=== PATIENT | male | born 1965 | race Two or more races ===

== ENCOUNTER 2024-12-01 12:17 | Inpatient (IN) | payer OTHER ==
[~2024-12-01] VITALS: Ht 165.1 cm; Wt 73.5 kg
--- NOTE | 2024-12-01 12:51 | ED.PDOC ---
GI ASSESSMENT HPI Comments 59 y.o male with PMHx of HTN, presents to the ED for a chief complaint of RLQ pain associated with nausea that started yesterday. Patient reports pain is sharp, went away but came back today around 9am worse and rating a 10/10 on the pain scale, Patient does state pain radiates to his back as well. Patient came back from [place] yesterday. No other symptoms presented. Patient has a history of appendectomy. Chief Complaint: Abdominal Pain Time Seen by MD: 12:39 Reviewed Notes: Nurses Notes, Medications, Allergies Allergies: Coded Allergies: NO KNOWN ALLERGIES (Unverified , 12/01/24) Information Source: Patient Mode of Arrival: Ambulatory Timing: Days (1) Duration: Since onset Quality: Sharp Vomitus: None Stool: Normal Severity: Moderate Recent: None Recent Hx of: None Pain Location: RLQ Modifying Factors: Nothing Associated sign and symptoms: Nausea, Abdominal Pain Past Medical History PAST MEDICAL HISTORY: HTN Surgical History: Appendectomy Family History Family History: Family hx of DM Social History Smoker: Non-Smoker Alcohol: Denies ETOH Use Drugs: Denies Drug Use Lives In: Home Constitutional: denies: chills, diaphoresis, fatigue, fever, malaise, sweats, weakness, others EENTM: denies: blurred vision, double vision, ear bleeding, ear discharge, ear drainage, ear pain, ear ringing, eye pain, eye redness, hearing loss, mouth pain, mouth swelling, nasal discharge, nose bleeding, nose congestion, nose pain, photophobia, tearing, throat pain, throat swelling, voice changes, others Respiratory: denies: cough, hemoptysis, orthopnea, SOB at rest, shortness of breath, SOB with excertion, stridor, wheezing, others Cardiovascular: denies: chest pain, dizzy spells, diaphoresis, Dyspnea on exertion, edema, irregular heart beat, left arm pain, lightheadedness, palpitations, PND, syncope, others Gastrointestinal: reports: abdominal pain, nausea; denies: abdomen distended, blood streaked bowels, constipated, diarrhea, dysphagia, difficulty swallowing, hematemesis, melena, poor appetite, poor fluid intake, rectal bleeding, rectal p ain, vomiting, others Genitourinary: denies: burning, dysuria, flank pain, frequency, hematuria, incontinence, penile discharge, penile sore, pain, testicle pain, testicle swelling, urgency, others Neurological: denies: dizziness, fainting, headache, left sided numbness, left sided weakness, numbness, paresthesia, pre-existing deficit, right sided numbness, right sided weakness, seizure, speech problems, tingling, tremors, weakness, others Musculoskeletal: reports: back pain; denies: gout, joint pain, joint swelling, muscle pain, muscle stiffness, neck pain, others Integumetry: denies: bruises, change in color, change in hair/nails, dryness, laceration, lesions, lumps, rash, wounds, others Allergic/Immunocompromised: denies: Difficulty Healing, Frequent Infections, Hives, Itching, others Hematologic/Lymphatic: denies: anemia, blood clots, easy bleeding, easy bruising, swollen glands, others Endocrine: denies: excessive hunger, excessive sweating, excessive thirst, excessive urination, flushing, intolerance to cold, intolerance to heat, unexplained weight gain, unexplained weight loss, others Psychiatric: denies: anxiety, bipolar disorder, depression, hopeless, panic disorder, schizophrenia, sleepless, suicidal, others All Other Systems: Reviewed and Negative Physical Exam General Appearance: Moderate Distress HEENT: Normal ENT Inspection, Pharynx Normal, TMs Normal Neck: Full Range of Motion, Non-Tender, Normal, Normal Inspection Respiratory: Chest Non-Tender, Lungs Clear, No Accessory Muscle Use, No Respiratory Distress, Normal Breath Sounds Cardiovascular: No Edema, No JVD, No Murmur, No Gallop, Normal Peripheral Pulses, Regular Rate/Rhythm Breast Exam: Deferred Gastrointestinal: No Organomegaly, Non Tender, No Pulsatile Mass, Normal Bowel Sounds, Soft Genitalia: Deferred Pelvic: Deferred Rectal: Deferred Extremities: No calf tenderness, Normal capillary refill, No pedal edema Musculoskeletal : Location: Right Extremity Location: Back Apperance: Tenderness: Moderate Neurologic: Alert, retort setter II-XII nml as Tested, No Motor Deficits, Normal Affect, Normal Mood, No Sensory Deficits Cerebellar Function: Normal Reflexes: Normal Skin: Dry, Normal Color, Warm Lymphatic: No Adenopathy Was a procedure done? Was a procedure done?: No GI differential Dx Differential Diagnosis: Bowel Obstruction, Diverticular disease, Gastroenteritis, Inflammatory BD, Kidney Stone X-Ray, Labs, Meds, VS Vital Signs Date Time Temp Pulse Resp B/P (MAP) Pulse Ox O2 Delivery O2 Flow Rate FiO2 12/01/24 12:45 98.0 66 16 160/100 (120) 99 98.0 Lab Test 12/01/24 13:00 12/01/24 12:52 Range/Units Urine Color Light-yellow Yellow Urine Clarity Clear Clear Urine pH 6.5 5.0-9.0 Urine Specific [place] 1.016 1.001-1.035 Urine Protein Negative Negative Urine Ketones Negative Negative Urine Blood 2+ H Negative /uL Urine Nitrite Negative Negative Urine Bilirubin Negative Negative Urine Urobilinogen Normal Negative mg/dL Urine Leukocyte Esterase Negative Negative /uL Urine RBC 1 0 - 3 /hpf Urine Microscopic WBC 1 0-3 /HPF Urine Squamous Epithelial Cells None seen <5 /hpf Urine Bacteria None seen None Seen /hpf Urine Mucus Few None Seen Urine Glucose Normal Normal mg/dL White Blood Count 9.5 4.4-10.8 10^3/uL Red Blood Count 5.38 4.5-5.90 10^6/uL Hemoglobin 15.0 13.5-17.5 g/dL Hematocrit 45.1 41.0-53.0 % Mean Corpuscular Volume 83.7 80.0-100.0 fL Mean Corpuscular Hemoglobin 27.9 L 28.0-32.0 pg Mean Corpuscular Hemoglobin Concent 33.3 32.0-36.0 g/dL Red Cell Distribution Width 19.4 H 11.8-14.3 % Platelet Count 167 140-450 10^3/uL Mean Platelet Volume 9.5 6.9-10.8 fL Neutrophils (%) (Auto) 79.6 37.0-80.0 % Lymphocytes (%) (Auto) 13.3 10.0-50.0 % Monocytes (%) (Auto) 5.9 0.0-12.0 % Eosinophils (%) (Auto) 0.9 0.0-7.0 % Basophils (%) (Auto) 0.3 0.0-2.0 % Neutrophils # (Auto) 7.6 1.6-8.6 10 ^3/uL Lymphocytes # (Auto) 1.3 0.4-5.4 10 ^3/uL Monocytes # (Auto) 0.6 0-1.3 10 ^3/uL Eosinophils # (Auto) 0.1 0-0.8 10 ^3/uL Basophils # (Auto) 0 0-0.2 10 ^3/uL Nucleated Red Blood Cells 0.1 % Sodium Level 137 136-145 mmol/L Potassium Level 3.9 3.5-5.1 mmol/L Chloride Level 100 98-107 mmol/L Carbon Dioxide Level 28 20-31 mmol/L Anion Gap 9 5-15 Blood Urea Nitrogen 10 9-23 mg/dL Creatinine 1.05 0.700-1.30 mg/dL Glomerular Filtration Rate Calc 81 >90 mL/min BUN/Creatinine Ratio 9.5 L 10.0-20.0 Serum Glucose 133 H 74-106 mg/dL Calcium Level 10.1 8.7-10.4 mg/dL Exam: CT CT AB PEL WO CON-NO ORAL OR IV IMPRESSION: 3 x 1 mm obstructing calculus over the right ureterovesical junction causing minimal right-sided hydroureteronephrosis. Jnkq-ah-ptoyhoba asymmetric right-sided perinephric fat stranding which is most likely from the obstructing calculus. Underlying infectious process can not be completely excluded Additional punctate nonobstructing right renal calculi is noted. Mild rectal wall thickening which may be due to inadequate distention with proctitis not excluded. Small to moderate amount of fecal material within the colon. Additional findings as above. IV Hep-Lock has been established The CBC is within normal limits The chemistry panel is within normal limits The patient is being admitted at this time Images Reviewed?: Images reviewed and evaluated by me Time of 1ST Reevaluation: 13:00 Reevaluation 1ST: Unchanged Patient Education/Counseling: Diagnosis, Treatment, Prognosis Family Education/Counseling: No Family Present SEPSIS Sepsis Screen Physician Orders Ct Ab Pel Wo Con-No Oral Or Iv (12/01/24 12:46) Heplock Iv (12/01/24 ) Vital Signs Date Time Temp Pulse Resp B/P (MAP) Pulse Ox O2 Delivery O2 Flow Rate FiO2 12/01/24 12:45 98.0 66 16 160/100 (120) 99 98.0 Laboratory Tests Test 12/01/24 12:52 White Blood Count 9.5 10^3/uL (4.4-10.8) Departure 1 Departure Time of Disposition: 15:08 Impression: Primary Impression: Intractable abdominal pain Additional Impressions: Hydronephrosis, right Ureterolithiasis Disposition: 09 ADMITTED INPATIENT Admit to: Med Surg Condition: Fair Critical Care Note Critical Care Time?: No Stability Stability form required: Yes Unstable for transfer: ED Physician Assesment (Clinical assesment) I personally scribed for MOISES HERNANDEZ MD ([email or web address]) on 12/01/24 at 12:51. Electronically submitted by Monica Wang ([facility]). I personally scribed for MOISES HERNANDEZ MD ([email or web address]) on 12/01/24 at 13:45. Electronically submitted by Monica Wang ([facility]). I personally scribed for MOISES HERNANDEZ MD ([email or web address]) on 12/01/24 at 14:22. Electronically submitted by Monica Wang ([facility]). MOISES HERNANDEZ MD Dec 01, 2024 12:51
--- NOTE | 2024-12-01 13:24 | DVH ---
Exam: CT CT AB PEL WO CON-NO ORAL OR IV History: right flank pain Comparison Study: None TECHNIQUE: Multidetector CT of the abdomen was performed from lung bases to pubic symphysis. Imaging was performed without IV contrast. Axial, coronal and sagittal multiplanar reformats were obtained fr om the axial data set by the technologist. Radiation Dose Information: CT Dose: CTDI volume is 8.84 mGy. Dose-length product is 504.85 mGy*cm FINDINGS: The lung bases are clear. Partially visualized heart is unremarkable. Mild hepatomegaly. Otherwise, liver, spleen, gallbladder, pancreas and adrenal glands are unremarkabl e. Rwbg-ax-hrlfsoer asymmetric right-sided perinephric fat stranding. Minimal right-sided hydro ureteral nephrosis with 3 x 1 mm obstructing calculus over the right ureterovesical junction. Additional punc thompson nonobstructing right renal lower pole calculus is noted. The left kidney and ureters are unremar kable. Urinary bladder is unremarkable. Prostate is unremarkable. Mild gaseous distention of the esophagus. Stomach is unremarkable. Small bowel loops are fluid-filled and nondistended. Appendix is not definitely visualized. Without visualization of the appendix, can not exclude acute appendicitis. Small to moderate amount of fecal material within the colon. Mild re ctal wall thickening. No evidence of intraperitoneal free air or free fluid. No evidence of aortic aneurysm. Ucwr-[id number] atherosclerotic calcification of the aorta and bilat eral iliacs. No significant lymphadenopathy. Small to moderate bilateral fat containing inguinal hernias. Soft tissues are unremarkable. No destru ctive osseous lesions noted. IMPRESSION: 3 x 1 mm obstructing calculus over the right ureterovesical junction causing minimal right-sided hydr oureteronephrosis. [id number] asymmetric right-sided perinephric fat stranding which is most likely from the obstr ucting calculus. Underlying infectious process can not be completely excluded Additional punctate nonobstructing right renal calculi is noted. Mild rectal wall thickening which may be due to inadequate distention with proctitis not excluded. S mall to moderate amount of fecal material within the colon. Additional findings as above.
[2024-12-01 13:34] LABS: Hematocrit 45.1 % (41.0-53.0); Hemoglobin 15.0 g/dL (13.5-17.5); Mean Corpuscular Hemoglobin 27.9 pg (28.0-32.0); Mean Corpuscular Volume 83.7 fL (80.0-100.0); Nucleated Red Blood Cells % 0.1 %
[2024-12-01 14:25] LABS: Chloride 100 mmol/L (98-107)
[2024-12-01 14:26] LABS: Anion Gap 9 (5-15); Carbon Dioxide 28 mmol/L (20-31); Potassium 3.9 mmol/L (3.5-5.1); Sodium 137 mmol/L (136-145)
[2024-12-01 14:27] LABS: Calcium 10.1 mg/dL (8.7-10.4)
[2024-12-01 14:32] LABS: BUN/Creatinine Ratio 9.5 (10.0-20.0); Blood Urea Nitrogen 10 mg/dL (9-23)
[2024-12-01 14:40] LABS: Glucose 133 mg/dL (74-106)
[2024-12-01 15:32] LABS: Urine Protein, UAD Negative (Negative)
[2024-12-01] MEDS: SODIUM CHLORIDE 0.9% 1,000 ML IV ONE (16:25)
[2024-12-01] MEDS: KETOROLAC TROMETH 30 MG/ML 1ML VIAL IV ONE (16:31)
--- NOTE | 2024-12-01 17:11 | DVHHP2 ---
Admitting Diagnosis: RLQ pain History of Present Illness 59 y.o male with PMHx of HTN and appendectomy presents to the ED for a chief complaint of RLQ pain with nausea onset yesterday. Endorses sharp pain, went aw ay but came back today at 0900 worse and 10/10. Pain radiates to his back. Patient came back from [place] yesterday. No other symptoms presented. CT shows a 3 mm UVJ stone on the right with minimal hydro. Cr is mildly elevated 1.5. While in the emergency department the patient was evaluated by the provider, As per provider: Labs, vital signs, and imagining monitored. Patient will be admitted for further evaluation and treatment. I discussed admission with the patient/family and is in agreement to treatment plan. Allergies: Coded Allergies: NO KNOWN ALLERGIES (Unverified , 12/01/24) Current Medications Current Medications Medications (Trade) Dose Ordered Sig/Maty Route PRN Reason Start Time Stop Time Status Last Admin Enoxaparin Sodium (Lovenox) 40 mg DAILY SC 12/02/24 10:00 12/02/24 08:59 Lactulose 30 ml BID PO 12/02/24 22:00 Hydralazine HCl (Apresoline Tablet) 50 mg TID PO 12/02/24 17:30 12/02/24 17:37 Clonidine HCl (Catapres Tablet) 0.2 mg Q6HP PRN PO SBP>160 12/02/24 17:30 Review of Systems Constitutional: denies chills, denies fever, denies malaise Eyes: denies eye pain, denies vision change ENT: denies ear pain, denies headache, denies nasal congestion, denies painful swallowing, denies voice change Cardiovascular: denies chest pain, denies edema, denies orthopnea, denies palpitations, denies paroxysmal nocturnal dyspnea Respiratory: denies cough, denies shortness of breath Gastrointestinal: denies constipation, denies diarrhea, denies nausea, denies vomiting Genitourinary: denies dysuria, denies frequent urination, denies urethral discharge Musculoskeletal: denies back pain, denies joint pain, denies muscle pain Skin: denies bruising, denies itching, denies rash Neurological: denies focal weakness, denies headache, denies sensory changes Psychiatric: denies anxiety, denies depression Endocrine: denies polydipsia, denies polyuria Hematologic/Lymphatic: denies easy bleeding, denies easy bruising, denies enlarged lymph nodes Allergic/Immunologic: denies allergy, denies hives Vital Signs Vital Signs Date Time Temp Pulse Resp B/P (MAP) Pulse Ox O2 Delivery O2 Flow Rate FiO2 12/02/24 20:00 96 12/02/24 19:00 18 166/92 12/02/24 16:59 99.4 98 99.4 12/02/24 08:00 Room Air* 0 21 Physical Exam General Appearance: alert, no distress HEENT: EOMI, PERRLA, normal external inspect of ears, no icterus, no nasal drainage Neck: no carotid bruit, no jugular venous distention (JVD), no lymphadenopathy Chest: normal thorax Respiratory: clear to auscultation, normal air movement Cardiovascular: regular rate and rhythm, no diastolic murmur, no jugular venous distention (JVD), no rub, no systolic murmur Abdominal: soft, no hepatomegaly, no mass, no splenomegaly, no tenderness Genitourinary: grossly normal external Musculoskeletal: no joint tenderness, no swelling Extremities: normal pulses, no calf tenderness, no clubbing, no cyanosis, no edema Skin: no bruising, no jaundice, no rash Neurological: alert, No focal deficit SEPSIS Sepsis Screen Date sepsis recognized/suspect: Dec 01, 2024 Time Sepsis recognized/suspect: 1216 Recent Procedure: No On Antibiotic Therapy: No Respiratory Rate >20: No Heart Rate >90: No Temp<36 C (96.8 F) or >38.3 C: No SBP <90 or MAP <65 mmHG: No New Acute Mental Status Change: No Is the patient on CPAP, BIPAP,: No Physician Orders Ct Ab Pel Wo Con-No Oral Or Iv (12/01/24 12:46) Heplock Iv (12/01/24 ) Admit (12/01/24 17:06) Code Status (12/01/24 17:06) Temazepam (Restoril) (12/01/24 17:15) Ondansetron Hcl (Zofran) (12/01/24 17:15) Enoxaparin Sodium (Lovenox) (12/02/24 10:00) Cardiac Diet-2gna,Lofat,Lochol (12/01/24 Dinner) Condition: Fair (12/01/24 17:06) Acetaminophen Tablet (Tylenol Tablet) (12/01/24 17:15) Morphine Sulfate Injection (12/01/24 17:15) Tramadol Hcl (Ultram) (12/01/24 17:15) Tamsulosin Hydrochloride (Flomax) (12/01/24 17:15) Sodium Chloride 0.9% (12/01/24 17:15) * Urology Consult (12/01/24 17:06) * [facility] Consult (12/01/24 ) Kub Abdomen Single View (12/02/24 11:38) Lactulose Oral (12/02/24 22:00) Strain All Urine For Stones (12/02/24 14:14) Hydralazine Hcl Tablet (Apresoline Table (12/02/24 17:30) Clonidine Hcl Tablet (Catapres Tablet) (12/02/24 17:30) Vital Signs Date Time Temp Pulse Resp B/P (MAP) Pulse Ox O2 Delivery O2 Flow Rate FiO2 12/02/24 20:00 96 12/02/24 19:00 92 18 166/92 12/02/24 18:30 95 28 207/102 12/02/24 17:37 194/109 12/02/24 16:59 99.4 75 17 181/94 (123) 98 99.4 12/02/24 13:13 97.2 71 17 134/75 (94) 96 97.2 12/02/24 09:06 97.5 75 17 131/78 (95) 97 97.5 12/02/24 08:00 75 17 97 Room Air* 0 21 12/02/24 08:00 69 12/02/24 05:00 98.2 76 17 126/74 (91) 96 98.2 12/02/24 01:00 98.2 76 18 167/89 (115) 98 98.2 12/01/24 22:50 66 18 98 Room Air* 0 21 12/01/24 22:12 97.7 66 18 153/80 (104) 98 97.7 12/01/24 21:32 97.5 70 20 134/73 (93) 100 97.5 12/01/24 18:53 97.6 68 20 155/83 (107) 97 97.6 12/01/24 17:22 72 18 96 Room Air* 0 21 12/01/24 17:21 72 18 135/74 (94) 96 12/01/24 17:21 135/74 12/01/24 16:32 85 17 98 Room Air 12/01/24 16:32 98.1 85 17 160/101 (120) 98 98.1 12/01/24 16:25 160/101 12/01/24 12:45 98.0 66 16 160/100 (120) 99 98.0 Laboratory Tests Test 12/01/24 12:52 12/02/24 05:57 White Blood Count 9.5 10^3/uL (4.4-10.8) 6.6 10^3/uL (4.4-10.8) # Medications Medications Dose Ordered Sig/Maty Route Start Time Stop Time Status Last Admin Dose Admin Enoxaparin Sodium 40 mg DAILY SC 12/02/24 10:00 12/02/24 08:59 Hydralazine HCl 50 mg TID PO 12/02/24 17:30 12/02/24 17:37 Lactulose 30 ml ONCE ONCE PO 12/02/24 13:30 12/02/24 13:42 DC 12/02/24 14:06 Results Labs Test 12/02/24 05:57 12/01/24 13:00 Range/Units White Blood Count 6.6 # 4.4-10.8 10^3/uL Red Blood Count 4.58 4.5-5.90 10^6/uL Hemoglobin 12.8 L 13.5-17.5 g/dL Hematocrit 38.3 #L 41.0-53.0 % Mean Corpuscular Volume 83.5 80.0-100.0 fL Mean Corpuscular Hemoglobin 27.9 L 28.0-32.0 pg Mean Corpuscular Hemoglobin Concent 33.4 32.0-36.0 g/dL Red Cell Distribution Width 19.6 H 11.8-14.3 % Platelet Count 131 L 140-450 10^3/uL Mean Platelet Volume 9.9 6.9-10.8 fL Neutrophils (%) (Auto) 72.8 37.0-80.0 % Lymphocytes (%) (Auto) 17.4 10.0-50.0 % Monocytes (%) (Auto) 8.6 0.0-12.0 % Eosinophils (%) (Auto) 0.8 0.0-7.0 % Basophils (%) (Auto) 0.4 0.0-2.0 % Neutrophils # (Auto) 4.8 1.6-8.6 10 ^3/uL Lymphocytes # (Auto) 1.2 0.4-5.4 10 ^3/uL Monocytes # (Auto) 0.6 0-1.3 10 ^3/uL Eosinophils # (Auto) 0.1 0-0.8 10 ^3/uL Basophils # (Auto) 0 0-0.2 10 ^3/uL Nucleated Red Blood Cells 0.1 % Sodium Level 137 136-145 mmol/L Potassium Level 4.3 3.5-5.1 mmol/L Chloride Level 103 98-107 mmol/L Carbon Dioxide Level 26 20-31 mmol/L Anion Gap 8 5-15 Blood Urea Nitrogen 18 9-23 mg/dL Creatinine 1.50 H 0.700-1.30 mg/dL Glomerular Filtration Rate Calc 53 >90 mL/min BUN/Creatinine Ratio 12.0 10.0-20.0 Serum Glucose 104 74-106 mg/dL Calcium Level 8.8 8.7-10.4 mg/dL Total Bilirubin 0.9 0.2-1.0 mg/dL Aspartate Amino Transferase (AST) 19 13-40 U/L Alanine Aminotransferase (ALT) 17 7-40 U/L Alkaline Phosphatase 44 L 46-116 U/L Total Protein 6.4 5.7-8.2 g/dL Albumin 3.9 3.2-4.8 g/dL Urine Color Light-yellow Yellow Urine Clarity Clear Clear Urine pH 6.5 5.0-9.0 Urine Specific [place] 1.016 1.001-1.035 Urine Protein Negative Negative Urine Ketones Negative Negative Urine Blood 2+ H Negative /uL Urine Nitrite Negative Negative Urine Bilirubin Negative Negative Urine Urobilinogen Normal Negative mg/dL Urine Leukocyte Esterase Negative Negative /uL Urine RBC 1 0 - 3 /hpf Urine Microscopic WBC 1 0-3 /HPF Urine Squamous Epithelial Cells None seen <5 /hpf Urine Bacteria None seen None Seen /hpf Urine Mucus Few None Seen Urine Glucose Normal Normal mg/dL Plan 1. Abdominal pain r/t ureterolithiasis Monitor, pain control, urology consult, PPI 2. Benign Essential HTN Monitor, DVT prophylaxis, flomax 3. Constipation Monitor, IV fluids Plan discussed with: Patient, Other [employer] Dec 01, 2024 17:11
[2024-12-01] MEDS ORDERED: ONDANSETRON HCL 4 MG/2 ML VIAL IV PRN (17:15)
[2024-12-01] MEDS ORDERED: TEMAZEPAM 15 MG CAP PO PRN (17:15)
[2024-12-01 17:22] VITALS: PULSE 72; RESP 18; O2SAT 96
[2024-12-01] MEDS: TAMSULOSIN HYDROCHLORIDE 0.4 MG CAP PO SCH (17:59)
[2024-12-01] MEDS: SODIUM CHLORIDE 0.9% 1,000 ML IV SCH (18:29)
[2024-12-01 22:12] VITALS: BP 153/80; PULSE 66; RESP 18; TEMP 97.7; O2SAT 98
[2024-12-01 22:50] VITALS: PULSE 66; RESP 18; O2SAT 98
[2024-12-02] VITALS (8 sets, daily range): BP systolic 126–181; BP diastolic 74–94; PULSE 69–96; RESP 17–18; TEMP 97.2–99.4; O2SAT 93–98
[2024-12-02 07:26] LABS: Hematocrit 38.3 % (41.0-53.0); Hemoglobin 12.8 g/dL (13.5-17.5); Mean Corpuscular Hemoglobin 27.9 pg (28.0-32.0); Mean Corpuscular Volume 83.5 fL (80.0-100.0); Nucleated Red Blood Cells % 0.1 %
[2024-12-02 07:37] LABS: Alanine Aminotransferase 17 U/L (7-40); Albumin 3.9 g/dL (3.2-4.8); Anion Gap 8 (5-15); BUN/Creatinine Ratio 12.0 (10.0-20.0); Bilirubin, Total 0.9 mg/dL (0.2-1.0); Blood Urea Nitrogen 18 mg/dL (9-23); Calcium 8.8 mg/dL (8.7-10.4); Carbon Dioxide 26 mmol/L (20-31); Chloride 103 mmol/L (98-107); Glucose 104 mg/dL (74-106); Potassium 4.3 mmol/L (3.5-5.1); Sodium 137 mmol/L (136-145); Total Protein 6.4 g/dL (5.7-8.2)
[2024-12-02 07:38] LABS: Alkaline Phosphatase 44 U/L (46-116)
[2024-12-02] MEDS: ENOXAPARIN SOD 40 MG/0.4 ML SYRINGE SC SCH (08:59)
--- NOTE | 2024-12-02 10:33 | DVHINCON2 ---
Date of service: Dec 02, 2024 Referring Physician Peggy Theodore Reason for Consultation ureteral stone History of Present Illness History Source: Patient, RN Notes, MD Notes Exam Limitations: No limitations HPI 59 y.o male with PMHx of HTN, presents to the ED for a chief complaint of RLQ pain associated with nausea that started yesterday. Patient reports pain is sharp, went away but came back today around 9am worse and rating a 10/10 on the pain scale, Patient does state pain radiates to his back as well. Patient came back from [place] yesterday. No other symptoms presented. Patient has a history of appendectomy. CT shows a 3 mm UVJ stone on the right with minimal hydro. Cr is mildly elevated 1.5 Past Medical History Patient Family History: Diabetes mellitus G8 MOTHER G8 SISTER G8 SISTER G8 SISTER Myocardial infarction in first degree female relative at unknown age G8 MOTHER G8 SISTER G8 SISTER G8 SISTER Review of Systems Genitourinary: Pain H&P Exam Vital Signs Vital Signs Date Time Temp Pulse Resp B/P (MAP) Pulse Ox O2 Delivery O2 Flow Rate FiO2 12/02/24 09:06 97.5 75 17 131/78 (95) 97 97.5 12/01/24 22:50 Room Air* 0 21 General Appeara: Well developed, Well nourished, Normal Appearance Neuro/Mental St: Alert, Oriented Appearance: Appropriate appearance, Appropriate insight Eye contact/ Speech: Cooperative, Good eye contact, Normal speech Skin Exam: Normal inspection, Normal color, Warm/dry Labs/Xrays [place] [id number] Ph: [phone] DIAGNOSTIC IMAGING Diagnostic Imaging Report : [id number] Signed PATIENT: [facility]AL[facility]: [id number] UNIT: [id number] : 1965 LOC: ER ROOM / BED: / AGE / SEX: 59 / M ADM STATUS: REG ER SERVICE [id number] ORDERING PHYSICIAN: MOISES HERNANDEZ MD PROCEDURE(s): ABPL - CT AB PEL WO CON-NO ORAL OR IV REASON: right flank pain ORDER NUMBER(s): [id number], ACCESSION NUMBER(s): [id number] Exam: CT CT AB PEL WO CON-NO ORAL OR IV History: right flank pain Comparison Study: None TECHNIQUE: Multidetector CT of the abdomen was performed from lung bases to pubic symphysis. Imaging was performed without IV contrast. Axial, coronal and sagittal multiplanar reformats were obtained from the axial data set by the technologist. Radiation Dose Information: CT Dose: CTDI volume is 8.84 mGy. Dose-length product is 504.85 mGy*cm FINDINGS: The lung bases are clear. Partially visualized heart is unremarkable. Mild hepatomegaly. Otherwise, liver, spleen, gallbladder, pancreas and adrenal glands are unremarkable. Srzv-na-ovbdrjev asymmetric right-sided perinephric fat stranding. Minimal right-sided hydro ureteral nephrosis with 3 x 1 mm obstructing calculus over the right ureterovesical junction. Additional punctate nonobstructing right renal lower pole calculus is noted. The left kidney and ureters are unremarkable. Urinary bladder is unremarkable. Prostate is unremarkable. Mild gaseous distention of the esophagus. Stomach is unremarkable. Small bowel loops are fluid-filled and nondistended. Appendix is not definitely visualized. Without visualization of the appendix, can not exclude acute appendicitis. Small to moderate amount of fecal material within the colon. Mild rectal wall thickening. No evidence of intraperitoneal free air or free fluid. No evidence of aortic aneurysm. [id number] atherosclerotic calcification of the aorta and bilateral iliacs. No significant lymphadenopathy. Small to moderate bilateral fat containing inguinal hernias. Soft tissues are unremarkable. No destructive osseous lesions noted. IMPRESSION: 3 x 1 mm obstructing calculus over the right ureterovesical junction causing minimal right-sided hydroureteronephrosis. [id number] asymmetric right-sided perinephric fat stranding which is most likely from the obstructing calculus. Underlying infectious process can not be completely excluded Additional punctate nonobstructing right renal calculi is noted. Mild rectal wall thickening which may be due to inadequate distention with proctitis not excluded. Small to moderate amount of fecal material within the colon. Additional findings as above. ATED BY: SHERITA SANCHEZ DO DICTATED DATE/TIME: 12/01/24 1322 SIGNED BY: SHERITA SANCHEZ DO SIGNED DATE/TIME: 12/01/24 1322 CC: Labs Test 12/02/24 05:57 12/01/24 13:00 Range/Units White Blood Count 6.6 # 4.4-10.8 10^3/uL Red Blood Count 4.58 4.5-5.90 10^6/uL Hemoglobin 12.8 L 13.5-17.5 g/dL Hematocrit 38.3 #L 41.0-53.0 % Mean Corpuscular Volume 83.5 80.0-100.0 fL Mean Corpuscular Hemoglobin 27.9 L 28.0-32.0 pg Mean Corpuscular Hemoglobin Concent 33.4 32.0-36.0 g/dL Red Cell Distribution Width 19.6 H 11.8-14.3 % Platelet Count 131 L 140-450 10^3/uL Mean Platelet Volume 9.9 6.9-10.8 fL Neutrophils (%) (Auto) 72.8 37.0-80.0 % Lymphocytes (%) (Auto) 17.4 10.0-50.0 % Monocytes (%) (Auto) 8.6 0.0-12.0 % Eosinophils (%) (Auto) 0.8 0.0-7.0 % Basophils (%) (Auto) 0.4 0.0-2.0 % Neutrophils # (Auto) 4.8 1.6-8.6 10 ^3/uL Lymphocytes # (Auto) 1.2 0.4-5.4 10 ^3/uL Monocytes # (Auto) 0.6 0-1.3 10 ^3/uL Eosinophils # (Auto) 0.1 0-0.8 10 ^3/uL Basophils # (Auto) 0 0-0.2 10 ^3/uL Nucleated Red Blood Cells 0.1 % Sodium Level 137 136-145 mmol/L Potassium Level 4.3 3.5-5.1 mmol/L Chloride Level 103 98-107 mmol/L Carbon Dioxide Level 26 20-31 mmol/L Anion Gap 8 5-15 Blood Urea Nitrogen 18 9-23 mg/dL Creatinine 1.50 H 0.700-1.30 mg/dL Glomerular Filtration Rate Calc 53 >90 mL/min BUN/Creatinine Ratio 12.0 10.0-20.0 Serum Glucose 104 74-106 mg/dL Calcium Level 8.8 8.7-10.4 mg/dL Total Bilirubin 0.9 0.2-1.0 mg/dL Aspartate Amino Transferase (AST) 19 13-40 U/L Alanine Aminotransferase (ALT) 17 7-40 U/L Alkaline Phosphatase 44 L 46-116 U/L Total Protein 6.4 5.7-8.2 g/dL Albumin 3.9 3.2-4.8 g/dL Urine Color Light-yellow Yellow Urine Clarity Clear Clear Urine pH 6.5 5.0-9.0 Urine Specific [place] 1.016 1.001-1.035 Urine Protein Negative Negative Urine Ketones Negative Negative Urine Blood 2+ H Negative /uL Urine Nitrite Negative Negative Urine Bilirubin Negative Negative Urine Urobilinogen Normal Negative mg/dL Urine Leukocyte Esterase Negative Negative /uL Urine RBC 1 0 - 3 /hpf Urine Microscopic WBC 1 0-3 /HPF Urine Squamous Epithelial Cells None seen <5 /hpf Urine Bacteria None seen None Seen /hpf Urine Mucus Few None Seen Urine Glucose Normal Normal mg/dL Assessment/Plan Problem List: (1) Ureterolithiasis (2) Hydronephrosis, right (3) Intractable abdominal pain (4) TERRY (acute kidney injury) Plan expulsive measures aggressive hydration strain urine cleared from urology when pain controlled Plan discussed with: Patient, Other ISSAC SPEARS NP Dec 02, 2024 10:33
--- NOTE | 2024-12-02 13:50 | DVHPN2 ---
Progress Note - Dictate Date Seen: Dec 02, 2024 Medical Necessity Reason Pt with a Central, PICC or Fol: No vital signs Vital Sign Date Time Temp Pulse Resp B/P (MAP) Pulse Ox O2 Delivery O2 Flow Rate FiO2 12/02/24 13:13 97.2 71 17 134/75 (94) 96 97.2 12/02/24 08:00 Room Air* 0 21 Total Intake and Output 12/01/24 12/01/24 12/02/24 15:00 23:00 07:00 Intake Total 500 ml Balance 500 ml medications Current Medications Medications Dose Ordered Sig/Maty Route Start Time Stop Time Status Last Admin Dose Admin Temazepam 15 mg QHSP PRN PO 12/01/24 17:15 Ondansetron HCl 4 mg Q4HP PRN IV 12/01/24 17:15 Enoxaparin Sodium 40 mg DAILY SC 12/02/24 10:00 12/02/24 08:59 40 MG Acetaminophen 650 mg Q6HP PRN PO 12/01/24 17:15 Morphine Sulfate 4 mg Q4HPRN PRN IV 12/01/24 17:15 Tramadol HCl 100 mg Q6HP PRN PO 12/01/24 17:15 12/01/24 22:54 100 MG Tamsulosin HCl 0.4 mg DAILY PO 12/01/24 17:15 12/02/24 08:57 0.4 MG Sodium Chloride 1,000 ml @ 100 mls/hr Q10H IV 12/01/24 17:15 12/01/24 22:55 100 MLS/HR Lactulose 30 ml BID PO 12/02/24 22:00 laboratory and microbiology Laboratory Tests 12/02/24 05:57 Test 12/02/24 05:57 Range/Units Serum Glucose 104 74-106 mg/dL Problem List 1. Abdominal pain r/t ureterolithiasis Monitor, pain control, urology consult, PPI 2. Benign Essential HTN Monitor, DVT prophylaxis, flomax 3. Constipation Monitor, IV fluids Assessment/Plan Subjective Patient is awake and alert. Objective Patient is having significant pain especially to his left groin. Patient was found to have an obstructing ureteral lithiasis. Patient was started on IV fluids as well as Flomax. Patient has a mild TERRY most likely related to obstruction. Plan Continue current pain medication. Patient where she has IV pain medicine when needed. Waiting on urology recommendations. Continue IV fluids and expulsive measures. Plan discussed with: Patient, Other HANDY VILLALBA NP Dec 02, 2024 13:50
[2024-12-02] MEDS: LACTULOSE 20Gm/30ML SOLN PO ONE (14:06)
--- NOTE | 2024-12-02 14:19 | DVH ---
KUB INDICATION: rule out sbo FINDINGS: The bowel gas pattern is unremarkable. No abnormal masses or calcifications. There is stool noted in the right colon. IMPRESSION: 1. Findings do not suggest small bowel obstruction. There is fecal loading in the colon
[2024-12-02] MEDS: MORPHINE SULFATE INJ 2 MG/ml SYRG IV PRN (18:30)
[2024-12-02] MEDS: LACTULOSE 20Gm/30ML SOLN PO SCH (21:50)
[2024-12-03] VITALS (8 sets, daily range): BP systolic 127–189; BP diastolic 71–94; PULSE 68–76; RESP 15–18; TEMP 97.1–98.9; O2SAT 96–99
--- NOTE | 2024-12-03 11:35 | DVHPN2 ---
Progress Note - Dictate Date Seen: Dec 03, 2024 Medical Necessity Reason Pt with a Central, PICC or Fol: No vital signs Vital Sign Date Time Temp Pulse Resp B/P (MAP) Pulse Ox O2 Delivery O2 Flow Rate FiO2 12/03/24 09:18 97.1 70 17 143/85 (104) 97 97.1 12/03/24 08:00 Room Air* 0 21 Total Intake and Output 12/02/24 12/02/24 12/03/24 15:00 23:00 07:00 Intake Total 950 ml 2400 ml Output Total 700 ml Balance 950 ml 1700 ml medications Current Medications Medications Dose Ordered Sig/Maty Route Start Time Stop Time Status Last Admin Dose Admin Temazepam 15 mg QHSP PRN PO 12/01/24 17:15 Ondansetron HCl 4 mg Q4HP PRN IV 12/01/24 17:15 Enoxaparin Sodium 40 mg DAILY SC 12/02/24 10:00 12/03/24 08:12 40 MG Acetaminophen 650 mg Q6HP PRN PO 12/01/24 17:15 Morphine Sulfate 4 mg Q4HPRN PRN IV 12/01/24 17:15 12/02/24 18:30 4 MG Tramadol HCl 100 mg Q6HP PRN PO 12/01/24 17:15 12/02/24 14:05 100 MG Tamsulosin HCl 0.4 mg DAILY PO 12/01/24 17:15 12/03/24 08:12 0.4 MG Sodium Chloride 1,000 ml @ 100 mls/hr Q10H IV 12/01/24 17:15 12/03/24 08:11 100 MLS/HR Lactulose 30 ml BID PO 12/02/24 22:00 12/03/24 08:11 30 ML Hydralazine HCl 50 mg TID PO 12/02/24 17:30 12/03/24 06:08 50 MG Clonidine HCl 0.2 mg Q6HP PRN PO 12/02/24 17:30 12/02/24 23:14 0.2 MG objective General Appearance: alert, no distress HEENT: EOMI, PERRLA, normal external inspect of ears, no icterus, no nasal drainage Neck: no carotid bruit, no jugular venous distention (JVD), no lymphadenopathy Chest: normal thorax Respiratory: clear to auscultation, normal air movement Cardiovascular: regular rate and rhythm, no diastolic murmur, no jugular venous distention (JVD), no rub, no systolic murmur Abdominal: soft, no hepatomegaly, no mass, no splenomegaly, no tenderness Genitourinary: grossly normal external Musculoskeletal: no joint tenderness, no swelling Extremities: normal pulses, no calf tenderness, no clubbing, no cyanosis, no edema Skin: no bruising, no jaundice, no rash Neurological: alert, No focal deficit laboratory and microbiology Laboratory Tests 12/02/24 05:57 Test 12/02/24 05:57 Range/Units Serum Glucose 104 74-106 mg/dL Problem List 1. Abdominal pain r/t ureterolithiasis Monitor, pain control, urology consult, PPI 2. Benign Essential HTN Monitor, DVT prophylaxis, flomax 3. Constipation Monitor, IV fluids Assessment/Plan Subjective: Patient is awake and alert. Objective: Patient is still having some groin pain. He states he is better than yesterday. Patient states he has tried morphine IV last night and it was able to help him with his discomfort. Patient has a ureterolithiasis. He was started on IV fluids and Flomax. Plan: Increase Flomax to twice daily. Continue IV fluids. Patient states he has severe pain when he urinates. Continue as needed pain medication as needed. Plan discussed with: Patient, Other HANDY VILLALBA NP Dec 03, 2024 11:35
[2024-12-03 14:05] LABS: Chloride 104 mmol/L (98-107); Potassium 4.1 mmol/L (3.5-5.1); Sodium 137 mmol/L (136-145)
[2024-12-03 14:06] LABS: Anion Gap 6 (5-15); Calcium 8.5 mg/dL (8.7-10.4); Carbon Dioxide 27 mmol/L (20-31)
[2024-12-03 14:11] LABS: BUN/Creatinine Ratio 14.8 (10.0-20.0); Blood Urea Nitrogen 12 mg/dL (9-23); Glucose 119 mg/dL (74-106)
[2024-12-03] MEDS: TAMSULOSIN HYDROCHLORIDE 0.4 MG CAP PO SCH (21:41)
[2024-12-03] MEDS: ACETAMINOPHEN 325 MG TAB PO PRN (22:59)
[2024-12-04 01:00] VITALS: BP 143/84; PULSE 63; RESP 15; TEMP 98.3; O2SAT 98
[2024-12-04 05:00] VITALS: BP 147/82; PULSE 64; RESP 15; TEMP 98; O2SAT 98
[2024-12-04 08:00] VITALS: PULSE 69
[2024-12-04 09:00] VITALS: BP 156/80; PULSE 88; RESP 19; TEMP 97.4; O2SAT 99
[2024-12-04] MEDS ORDERED: ALPRAZolam 0.5 MG TAB PO PRN (10:15)
[2024-12-04] MEDS: FUROSEMIDE 40 MG/4 ML VIAL IV ONE (10:29)
--- NOTE | 2024-12-04 12:19 | DVH ---
Exam: CT CT AB PEL WO CON-NO ORAL OR IV History: Flank pain. Comparison Study: CT CT AB PEL WO CON-NO ORAL OR IV on DOS: 12/01/24 Technique: Multidetector spiral CT of the abdomen and pelvis was performed from lung bases to pubic s ymphysis. Imaging was performed without intravenous contrast. Coronal and sagittal multiplanar reform ats were obtained from the axial data set by the technologist. Radiation Dose : 1. Abdomen/Pelvis: CTDIvol 495.72 mGy, DLP 487.87 mGy*cm. Findings: Evaluation of vasculature and solid organs is limited due to lack of intravenous contrast use. Lung Bases: Lung bases are clear. Visualized portions of the heart and pericardium are unremarkable. Liver: The liver is normal in size. No focal lesions. Gallbladder and Biliary Tree: The gallbladder is unremarkable. No intrahepatic or extrahepatic biliar y ductal dilatation. Spleen: Unremarkable Pancreas: The pancreas is grossly unremarkable. Adrenal Glands: Unremarkable Kidneys: Punctate nonobstructive right nephrolithiasis. Mild right hydroureteronephrosis. The previo usly characterized obstructing stone at the right ureterovesical junction has passed. Left kidney is unremarkable. GI tract: The stomach is grossly normal in appearance. Fluid-filled small bowel loops, nonspecific. T he colon is unremarkable. The appendix is visualized and is normal. Peritoneum/mesentery/retroperitoneum. No evidence of free intraperitoneal air. No ascites. No evidenc e of suspicious lymphadenopathy. Abdominal Wall: Unremarkable. Vasculature: The visualized abdominal aorta is normal in size and caliber. Evaluation of abdominal a nd pelvic vessels is limited due to lack of intravenous contrast. Urinary Bladder: Grossly unremarkable for degree of distention. Pelvic Organs: Unremarkable Musculoskeletal: No aggressive focal bony lesions, acute fractures or dislocation. Soft tissues: Bilateral fat containing inguinal hernias. IMPRESSION: 1. Previously characterized obstructing stone at the right ureterovesical junction has passed. Puncta te nonobstructive right nephrolithiasis. 2. Fluid-filled small bowel loops, nonspecific and may reflect enteritis in the appropriate clinical setting.
[2024-12-04 13:00] VITALS: BP 135/82; PULSE 69; RESP 18; TEMP 98.4; O2SAT 98
--- NOTE | 2024-12-04 14:20 | DVHPN2 ---
Progress Note - Dictate Medical Necessity Reason Pt with a Central, PICC or Fol: No vital signs Vital Sign Date Time Temp Pulse Resp B/P (MAP) Pulse Ox O2 Delivery O2 Flow Rate FiO2 12/04/24 14:13 128/74 12/04/24 13:00 98.4 69 18 98 98.4 12/04/24 08:00 Room Air* 0 21 Total Intake and Output 12/03/24 12/03/24 12/04/24 15:00 23:00 07:00 Intake Total 200 ml 1686 ml 1380 ml Balance 200 ml 1686 ml 1380 ml medications Current Medications Medications Dose Ordered Sig/Maty Route Start Time Stop Time Status Last Admin Dose Admin Temazepam 15 mg QHSP PRN PO 12/01/24 17:15 Ondansetron HCl 4 mg Q4HP PRN IV 12/01/24 17:15 Enoxaparin Sodium 40 mg DAILY SC 12/02/24 10:00 12/03/24 08:12 40 MG Acetaminophen 650 mg Q6HP PRN PO 12/01/24 17:15 12/03/24 22:59 650 MG Morphine Sulfate 4 mg Q4HPRN PRN IV 12/01/24 17:15 12/02/24 18:30 4 MG Tramadol HCl 100 mg Q6HP PRN PO 12/01/24 17:15 12/02/24 14:05 100 MG Lactulose 30 ml BID PO 12/02/24 22:00 12/04/24 10:27 30 ML Clonidine HCl 0.2 mg Q6HP PRN PO 12/02/24 17:30 12/04/24 10:50 0.2 MG Hydralazine HCl 100 mg TID PO 12/03/24 14:00 12/04/24 14:13 100 MG Tamsulosin HCl 0.4 mg BID PO 12/03/24 22:00 12/04/24 10:26 0.4 MG Alprazolam 0.5 mg Q6HPRN PRN PO 12/04/24 10:15 objective General Appearance: alert, no distress HEENT: EOMI, PERRLA, normal external inspect of ears, no icterus, no nasal drainage Neck: no carotid bruit, no jugular venous distention (JVD), no lymphadenopathy Chest: normal thorax Respiratory: clear to auscultation, normal air movement Cardiovascular: regular rate and rhythm, no diastolic murmur, no jugular venous distention (JVD), no rub, no systolic murmur Abdominal: soft, no hepatomegaly, no mass, no splenomegaly, no tenderness Genitourinary: grossly normal external Musculoskeletal: no joint tenderness, no swelling Extremities: normal pulses, no calf tenderness, no clubbing, no cyanosis, no edema Skin: no bruising, no jaundice, no rash Neurological: alert, No focal deficit laboratory and microbiology Laboratory Tests 12/03/24 13:30 12/02/24 05:57 Test 12/03/24 13:30 Range/Units Serum Glucose 119 H 74-106 mg/dL Problem List 1. Abdominal pain r/t ureterolithiasis Monitor, pain control, urology consult, PPI 2. Benign Essential HTN Monitor, DVT prophylaxis, flomax 3. Constipation Monitor, IV fluids 4. Enteritis Monitor, IV antibiotics, GI consult Assessment/Plan Subjective: Patient is awake and alert. Objective: Patient is still having some groin pain. He states he is better than yesterday. Patient states he has tried morphine IV last night and it was able to help him with his discomfort. Patient has a ureterolithiasis. He was started on IV fluids and Flomax. Plan: Increase Flomax to twice daily. Continue IV fluids. Patient states he has severe pain when he urinates. Continue as needed pain medication as needed. HANDY VILLALBA NP Dec 04, 2024 14:20
[2024-12-04] MEDS ORDERED: CAPT25TA5 PO (14:23)
[2024-12-04] MEDS: PIPERACILLIN-TAZOB 3.375GM 100 ML IV ONE (14:45)
[2024-12-04 17:00] VITALS: BP 140/88; PULSE 91; RESP 18; TEMP 98.8; O2SAT 97
--- NOTE | 2024-12-04 17:16 | DVHINCON2 ---
Date of service: Dec 04, 2024 Referring Physician Peggy Theodore Reason for Consultation Possible enteritis History of Present Illness 59 y.o male with PMHx of HTN, presents to the ED for a chief complaint of RLQ pain associated with nausea that started yesterday. Patient reports pain is sharp, went away but came back today around 9am worse and rating a 10/10 on the pain scale, Patient does state pain radiates to his back as well. Patient came back from [place] yesterday. No other symptoms presented. Patient has a history of appendectomy. CT shows a 3 mm UVJ stone on the right with minimal hydro. Cr is mildly elevated 1.5 Patient was diagnosed with a right ureteral stone that has since passed spontaneously. This morning the patient was complaining of some anxiety and chest pain. Cardiology consult is awaited. GI consult was obtained as a CT scan done this morning was suggestive of some fluid-filled loops of bowels possible enteritis. Patient has moved his bowels and there was no diarrhea or bleeding reported Past Medical History HTN Past Surgical History Appendectomy Family History: Diabetes mellitus G8 MOTHER G8 SISTER G8 SISTER G8 SISTER Myocardial infarction in first degree female relative at unknown age G8 MOTHER G8 SISTER G8 SISTER G8 SISTER Allergies: Coded Allergies: NO KNOWN ALLERGIES (Unverified , 12/01/24) Home Meds Reported Medications Captopril (Captopril) 25 Mg Tab, 25 MG PO BID, TAB 12/04/24 Current Medications Current Medications Medications (Trade) Dose Ordered Sig/Maty Route PRN Reason Start Time Stop Time Status Last Admin Tamsulosin HCl (Flomax) 0.4 mg BID PO 12/03/24 22:00 12/04/24 10:26 Alprazolam (Xanax Tablet) 0.5 mg Q6HPRN PRN PO ANXIETY 12/04/24 10:15 Piperacillin Sod/ Tazobactam Sod 100 ml @ 25 mls/hr Q8HR IV 12/04/24 22:00 Vital Signs Vital Signs Date Time Temp Pulse Resp B/P (MAP) Pulse Ox O2 Delivery O2 Flow Rate FiO2 12/04/24 14:13 128/74 12/04/24 13:00 98.4 69 18 98 98.4 12/04/24 08:00 Room Air* 0 21 Physical Exam General Appeara: Well developed, Well nourished, Normal Appearance Neuro/Mental St: Alert, Oriented Appearance: Appropriate appearance, Appropriate insight Eye contact/ Speech: Cooperative, Good eye contact, Normal speech Skin Exam: Normal inspection, Normal color, Warm/dry Labs/Diagnostic Data Labs Test 12/04/24 13:31 12/03/24 13:30 12/02/24 05:57 12/01/24 13:00 Range/Units Troponin I High Sensitivity 48 </=54 ng/L Sodium Level 137 136-145 mmol/L Potassium Level 4.1 3.5-5.1 mmol/L Chloride Level 104 98-107 mmol/L Carbon Dioxide Level 27 20-31 mmol/L Anion Gap 6 5-15 Blood Urea Nitrogen 12 9-23 mg/dL Creatinine 0.81 0.700-1.30 mg/dL Glomerular Filtration Rate Calc 101 >90 mL/min BUN/Creatinine Ratio 14.8 10.0-20.0 Serum Glucose 119 H 74-106 mg/dL Calcium Level 8.5 L 8.7-10.4 mg/dL White Blood Count 6.6 # 4.4-10.8 10^3/uL Red Blood Count 4.58 4.5-5.90 10^6/uL Hemoglobin 12.8 L 13.5-17.5 g/dL Hematocrit 38.3 #L 41.0-53.0 % Mean Corpuscular Volume 83.5 80.0-100.0 fL Mean Corpuscular Hemoglobin 27.9 L 28.0-32.0 pg Mean Corpuscular Hemoglobin Concent 33.4 32.0-36.0 g/dL Red Cell Distribution Width 19.6 H 11.8-14.3 % Platelet Count 131 L 140-450 10^3/uL Mean Platelet Volume 9.9 6.9-10.8 fL Neutrophils (%) (Auto) 72.8 37.0-80.0 % Lymphocytes (%) (Auto) 17.4 10.0-50.0 % Monocytes (%) (Auto) 8.6 0.0-12.0 % Eosinophils (%) (Auto) 0.8 0.0-7.0 % Basophils (%) (Auto) 0.4 0.0-2.0 % Neutrophils # (Auto) 4.8 1.6-8.6 10 ^3/uL Lymphocytes # (Auto) 1.2 0.4-5.4 10 ^3/uL Monocytes # (Auto) 0.6 0-1.3 10 ^3/uL Eosinophils # (Auto) 0.1 0-0.8 10 ^3/uL Basophils # (Auto) 0 0-0.2 10 ^3/uL Nucleated Red Blood Cells 0.1 % Total Bilirubin 0.9 0.2-1.0 mg/dL Aspartate Amino Transferase (AST) 19 13-40 U/L Alanine Aminotransferase (ALT) 17 7-40 U/L Alkaline Phosphatase 44 L 46-116 U/L Total Protein 6.4 5.7-8.2 g/dL Albumin 3.9 3.2-4.8 g/dL Urine Color Light-yellow Yellow Urine Clarity Clear Clear Urine pH 6.5 5.0-9.0 Urine Specific [place] 1.016 1.001-1.035 Urine Protein Negative Negative Urine Ketones Negative Negative Urine Blood 2+ H Negative /uL Urine Nitrite Negative Negative Urine Bilirubin Negative Negative Urine Urobilinogen Normal Negative mg/dL Urine Leukocyte Esterase Negative Negative /uL Urine RBC 1 0 - 3 /hpf Urine Microscopic WBC 1 0-3 /HPF Urine Squamous Epithelial Cells None seen <5 /hpf Urine Bacteria None seen None Seen /hpf Urine Mucus Few None Seen Urine Glucose Normal Normal mg/dL CT SCAN ABD PELVIS IMPRESSION: 1. Previously characterized obstructing stone at the right ureterovesical junction has passed. Punctate nonobstructive right nephrolithiasis. 2. Fluid-filled small bowel loops, nonspecific and may reflect enteritis in the appropriate clinical setting. Problems(with codes): (1) TERRY (acute kidney injury) (2) Intractable abdominal pain (3) Hydronephrosis, right (4) Ureterolithiasis (5) Abnormal finding on GI tract imaging Plan/Recommendation Plan Patient appears to have passed his kidney stone The fluid for loops are probably related to mild ileus as a result of his ureteral stone and abdominal discomfort He is moving his bowels and there was no diarrhea or bleeding I will continue conservative management at this time with IV fluid hydration advance diet as tolerated If he develops diarrhea we can check stool for bacterial culture, I will order stool for WBC and occult blood Patient will likely need follow up in my office as an outpatient for elective colonoscopy Once again thank you for allowing me to participate in the care of this patient Plan discussed with: Other (None) JEREMIAH THOMPSON MD Dec 04, 2024 17:16
--- NOTE | 2024-12-04 21:54 | DVHDS2 ---
Discharge Summary Date of Admission Dec 01, 2024 at 17:06 Date of Discharge: Dec 04, 2024 Labs/Diagnostic Data: Laboratory Results Test 12/04/24 13:31 12/03/24 13:30 12/02/24 05:57 12/01/24 13:00 Troponin I High Sensitivity 48 ng/L (</=54) Sodium Level 137 mmol/L (136-145) Potassium Level 4.1 mmol/L (3.5-5.1) Chloride Level 104 mmol/L (98-107) Carbon Dioxide Level 27 mmol/L (20-31) Anion Gap 6 (5-15) Blood Urea Nitrogen 12 mg/dL (9-23) Creatinine 0.81 mg/dL (0.700-1.30) Glomerular Filtration Rate Calc 101 mL/min (>90) BUN/Creatinine Ratio 14.8 (10.0-20.0) Serum Glucose 119 mg/dL (74-106) Calcium Level 8.5 mg/dL (8.7-10.4) White Blood Count 6.6 10^3/uL (4.4-10.8) Red Blood Count 4.58 10^6/uL (4.5-5.90) Hemoglobin 12.8 g/dL (13.5-17.5) Hematocrit 38.3 % (41.0-53.0) Mean Corpuscular Volume 83.5 fL (80.0-100.0) Mean Corpuscular Hemoglobin 27.9 pg (28.0-32.0) Mean Corpuscular Hemoglobin Concent 33.4 g/dL (32.0-36.0) Red Cell Distribution Width 19.6 % (11.8-14.3) Platelet Count 131 10^3/uL (140-450) Mean Platelet Volume 9.9 fL (6.9-10.8) Neutrophils (%) (Auto) 72.8 % (37.0-80.0) Lymphocytes (%) (Auto) 17.4 % (10.0-50.0) Monocytes (%) (Auto) 8.6 % (0.0-12.0) Eosinophils (%) (Auto) 0.8 % (0.0-7.0) Basophils (%) (Auto) 0.4 % (0.0-2.0) Neutrophils # (Auto) 4.8 10 ^3/uL (1.6-8.6) Lymphocytes # (Auto) 1.2 10 ^3/uL (0.4-5.4) Monocytes # (Auto) 0.6 10 ^3/uL (0-1.3) Eosinophils # (Auto) 0.1 10 ^3/uL (0-0.8) Basophils # (Auto) 0 10 ^3/uL (0-0.2) Nucleated Red Blood Cells 0.1 % Total Bilirubin 0.9 mg/dL (0.2-1.0) Aspartate Amino Transferase (AST) 19 U/L (13-40) Alanine Aminotransferase (ALT) 17 U/L (7-40) Alkaline Phosphatase 44 U/L (46-116) Total Protein 6.4 g/dL (5.7-8.2) Albumin 3.9 g/dL (3.2-4.8) Urine Color Light-yellow (Yellow) Urine Clarity Clear (Clear) Urine pH 6.5 (5.0-9.0) Urine Specific [place] 1.016 (1.001-1.035) Urine Protein Negative (Negative) Urine Ketones Negative (Negative) Urine Blood 2+ /uL (Negative) Urine Nitrite Negative (Negative) Urine Bilirubin Negative (Negative) Urine Urobilinogen Normal mg/dL (Negative) Urine Leukocyte Esterase Negative /uL (Negative) Urine RBC 1 /hpf (0 - 3) Urine Microscopic WBC 1 /HPF (0-3) Urine Squamous Epithelial Cells None seen /hpf (<5) Urine Bacteria None seen /hpf (None Seen) Urine Mucus Few (None Seen) Urine Glucose Normal mg/dL (Normal) Other Laboratory Tests 12/03/24 13:30 12/02/24 05:57 Brief Hx & Hospital Course: 59 y.o male with PMHx of HTN and appendectomy presents to the ED for a chief complaint of RLQ pain with nausea onset yesterday. Endorses sharp pain, went away but came back today at 0900 worse and 02/28. Pain radiates to his back. Patient came back from [place] yesterday. No other symptoms presented. CT shows a 3 mm UVJ stone on the right with minimal hydro. Cr is mildly elevated 1.5. While in the emergency department the patient was evaluated by the provider, As per provider: Labs, vital signs, and imagining monitored. Patient was admitted on December 01, 2024 with abdominal pain. Patient was found to have ureterolithiasis. Patient was seen by urology. Patient had complaints of flank pain and abdominal pain. Patient was seen by urology. They did recommend to continue IV fluids and expulsion measures. Patient was started on flow max. Patient has significant pain while urinating. Flow Max was increased to twice a day. Patient was noted to have an elevated blood pressure with pain. I did instruct him to take IV morphine as needed for his severe pain. Patient's urine was strained. Repeat CT imaging showed he passed his stone. Per urology, no further workup was indicated at this time. Patient had complaints of constipation and he was given lactulose. Patient then had complaints of belching frequently and abdominal distension. Repeat CT image showed possible enteritis. Patient was started on antibiotics and GI was consulted. Patient decided to leave against medical advice. He was instructed to follow up with his PCP or if his symptoms were worsening to return to the emergency room for further workup and treatment. There were no complaints or new complaints upon discharge, all questions and concerns were answered. Patient was advised to return to the ER or call 911 if any headaches, dizziness, shortness of breath, chest pain, bleeding, fevers, or worsening of medical condition. Patient/Family was counseled about treatment plan, medications, possible side effects, patientverbalized understanding. All questions were answered to the best of my ability. The patient symptoms improved and they are okay to be DC. Condition at Discharge: Unstable Final Diagnosis/Problems List Abdominal pain r/t ureterolithiasis Benign Essential HTN Constipation Enteritis Discharge Disposition: AMA Discharge Instruct/Medications Scheduled Captopril (Captopril), 25 MG PO BID, (Reported) Discharge Statement: "Patient was advised to return to the ER or call 911 if any headaches, dizziness, shortness of breath, chest pain, abdominal pain, bleeding, fevers, or worsening of medical condition. Patient was counseled about treatment plan, medications, possible side effects, patientverbalized understanding. All questions were answered to the best of my ability. This discharge took greater then 30 minutes in planning, reviewing documentation, counseling the patient, and discussing with other team members." ASSESSMENT ASSESSMENT Assessment HANDY VILLALBA NP Dec 04, 2024 21:54
[2024-12-04] MEDS ORDERED: PIPERACILLIN-TAZOB 3.375GM 100 ML IV SCH (22:00)
--- NOTE | 2024-12-05 09:32 | ECG ---
[facility] Date: 2024-12-04 Test Time: 09:46:58 Pat Name: DALILA LIMON Department: Respiratoy Room: [address] [place] [address] 7 Gender: M [employer] Top Helper: BELIA DOS SANTOS LVN : 1965 Requested By: HANDY VILLALBA Order Number: [id number] Reading MD: Xiang Albrecht Measurements Intervals [place] Rate: 100 P: 70 PA: 202 QRS: -23 QRSD: 88 T: 55 QT: 347 QTc: 448 Interpretive Statements Sinus tachycardia Multiple ventricular premature complexes Borderline prolonged [place] interval Borderline left axis deviation Abnormal R-wave progression, late transition ST elevation suggests acute pericarditis Electronically Signed On 12-09-2024 21:28:35 PDT by Xiang Albrecht Please click the below link to view image of tracing.
--- NOTE | 2024-12-06 11:59 | ECG ---
[facility] Test Date: 2024-12-04 Test Time: 09:48:05 Pat Name: DALILA LIMON Department: Respiratoy Room: [address] [place] [address] 7 Gender: M Cardiopulmonary Physical Therapist: BELIA DOS SANTOS LVN : 1965 Requested By: HANDY VILLALBA Order Number: [id number] Reading MD: Xiang Albrecht Measurements Intervals [place] Rate: 100 P: 69 [place]: 211 QRS: -30 QRSD: 91 T: 51 QT: 350 QTc: 452 Interpretive Statements Sinus tachycardia Prolonged [place] interval Left axis deviation Abnormal R-wave progression, late transition ST elevation suggests acute pericarditis Electronically Signed On 12-09-2024 21:28:42 PDT by Xiang Albrecht Please click the below link to view image of tracing.
== END 2024-12-04 18:15 | disposition left against medical advice (07) | DRG 694 ==
LOC: ER 12:17 → OVERFLOW 17:06 → TELE-EAST 22:12
PROVIDERS: ADMIT Nurse Practitioner; ATTEND Nurse Practitioner
DX: N13.2 Hydronephrosis with renal and ureteral calculous obstruction (principal); I10 Essential (primary) hypertension; N17.9 Acute kidney failure, unspecified; K59.00 Constipation, unspecified; F41.9 Anxiety disorder, unspecified; K52.9 Noninfective gastroenteritis and colitis, unspecified; Z53.29 Procedure and treatment not carried out because of patient's decision for other reasons; Z90.49 Acquired absence of other specified parts of digestive tract; Z87.19 Personal history of other diseases of the digestive system; Z83.3 Family history of diabetes mellitus; Z82.49 Family history of ischemic heart disease and other diseases of the circulatory system
CPT/HCPCS: 36415; 74018; 74176; 80048; 80053; 81001; 84484; 85025; 93005; 96361; 96374; G0378; J1885; J2543